=== PATIENT | female | born 1995 | race Caucasian/White ===

== ENCOUNTER 2017-06-20 13:09 | Emergency (ER) | END 2017-06-20 17:42 | disposition home or self-care (01) ==

== ENCOUNTER 2017-10-04 17:59 | Outpatient (CLI) | END 2017-10-04 20:16 | disposition home or self-care (01) ==

== ENCOUNTER 2017-11-25 17:58 | Outpatient (CLI) | END 2017-11-25 22:12 | disposition home or self-care (01) ==

== ENCOUNTER 2017-11-28 12:08 | Outpatient (CLI) | END 2017-11-28 15:15 | disposition home or self-care (01) ==

== ENCOUNTER 2017-12-01 08:40 | Inpatient (IN) | END 2017-12-03 13:45 | disposition home or self-care (01) | DRG 775 ==